=== PATIENT | male | born 1975 | race Two or more races ===

== ENCOUNTER 2024-11-22 19:15 | Inpatient (IN) | payer OTHER ==
[~2024-11-22] VITALS: Ht 172.7 cm; Wt 90.7 kg
[~2024-11-22 19:15] MED LIST: AMARYL 1 MG PO; AMOX1TAB5 PO; BASAGLAR K100 UNIT/1 SQ; Bumex PO; CARdura 2MG TABLET PO; CARdura 4MG TABLET PO; Cozaar PO; HumaLOG 100 UNIT/1 ML (3ML) SUBCUTANEO; INTESTINEX1 CA1 PO; Lantus 1000 U/10 ML SUBCUTANEO; NORVASC 10 MG TAB PO; NORVASC 5MG TAB PO; PROCRIT IV; PROTEINEX WC L887 ML PO; Tenormin 50MG TAB PO; ZYLOPRIM100 M1 PO
[2024-11-22] MEDS ORDERED: NIFEDIPINE20 MG PO (19:27)
[2024-11-22] MEDS ORDERED: CARVEDILOL ER40 MG PO (19:27)
[2024-11-22] MEDS ORDERED: ELIQUIS5 MG PO (19:27)
[2024-11-22] MEDS ORDERED: TAMBOCOR150 MG PO (19:28)
[2024-11-22] MEDS ORDERED: TRADJENTA5 MG PO (19:28)
[2024-11-22] MEDS ORDERED: HUMALOG100 UNIT/2 SQ (19:29)
[2024-11-22] MEDS ORDERED: LANTUS SOL100 UNIT/1 (19:29)
--- NOTE | 2024-11-22 19:29 | NUR ---
PACIENTE DEL DR. NADJA CHU POR CON HGB EN 6.0
--- NOTE | 2024-11-22 20:42 | NUR ---
SE EDUCA PACIENTE SOBRE EL TX MEDICO Y LEI REFIERE ENTENDER. SE CANALIZA Y SE CARLYLE EN S/L. SE HAY MUESTRAS DE LABORATORIOS Y SE ENVIAN. SE REQUISAN 2 UNIDADES PARA SER TRANSFUNDIDO INTRA DYALISIS. PACIENTE FIRMA CONSENTIMIENTO DE TRANSFUCION
[2024-11-22 21:02] LABS: MEAN CELL VOLUME 87.7 fL (80.0-100.00); MEAN CORPUSCULAR HGB CONC 34.1 g/dl (32.0-36.0); RED BLOOD COUNT 2.01 M/uL (4.00-6.00); RED CELL DISTRIBUTION WIDTH 14.4 % (11.5-14.5)
[2024-11-22 21:08] LABS: HEMATOCRIT 17.7 % (39.0-48.0); MEAN CORPUSCULAR HEMOGLOBIN 29.8 pg (27.00-32.0); PLATELET COUNT 126 K/uL (150-450)
[2024-11-22 21:14] LABS: INR 1.05; PARTIAL THROMBOPLASTIN TIME 32.5 SECONDS (22.0-34.0); PROTHROMBIN TIME 11.4 SECONDS (9.0-11.5)
[2024-11-22 21:23] LABS: ALBUMIN 2.7 gm/dL (3.4-5.0); BILIRUBIN TOTAL 1.07 mg/dL (0.3-1.2); GFR 3.87; GLOBULINA 4.5 G/DL (2.4-3.5); POTASSIUM 4.5 mEq/L (3.5-5.1); TOTAL PROTEIN 7.2 gm/dL (6.4-8.2)
[2024-11-22 21:37] LABS: CREATININE SERUM 13.8 mg/dL (0.70-1.30)
[2024-11-22] MEDS ORDERED: INSULIN LISPRO 1,000 UNIT/10 ML UNITS SUBCUTANEO PRN (22:15)
[2024-11-22] MEDS ORDERED: DEXTROSE 50 % IN WATER 0.5 G/ML DISP.SYRIN IV PRN (22:15)
[2024-11-22 23:26] VITALS: BP 155/75; O2SAT 99
[2024-11-23 02:27] VITALS: BP 152/62; O2SAT 100
[2024-11-23] MEDS ORDERED: INSULIN LISPRO 1,000 UNIT/10 ML UNITS SUBCUTANEO SCH (08:00)
[2024-11-23 08:20] VITALS: BP 124/81; O2SAT 100
[2024-11-23] MEDS ORDERED: NIFEDIPINE 30 MG TAB.SA.OSM PO SCH (09:00)
[2024-11-23] MEDS ORDERED: FF) FLECAINIDE ACETATE 50MG TAB PO SCH (09:00)
[2024-11-23] MEDS ORDERED: APIXABAN 5 MG TABLET PO SCH (09:00)
[2024-11-23] MEDS ORDERED: PANTOPRAZOLE SODIUM 40 MG/VIAL VIAL IV SCH (09:00)
[2024-11-23] MEDS ORDERED: CARVEDILOL 25 MG TABLET PO SCH (09:00)
[2024-11-23] MEDS ORDERED: CALCITRIOL 0.25 MCG CAPSULE PO SCH (09:00)
[2024-11-23 19:21] VITALS: BP 149/69; O2SAT 100
[2024-11-23] MEDS ORDERED: INSULIN GLARGINE,HUM.REC.ANLOG 1,000 UNITS/10 ML UNITS SUBCUTANEO SCH (21:00)
[2024-11-24 00:12] VITALS: BP 139/64; O2SAT 100
[2024-11-24] MEDS ORDERED: IRON FUM,PS/FOLIC/BCOMP,C NO.9 1 CAP CAPSULE PO SCH (09:00)
[2024-11-24] MEDS ORDERED: Cyanocobalamin/Mecobalamin 1 TAB.SL SL SCH (09:00)
[2024-11-24] MEDS ORDERED: EPOETIN ALFA-EPBX 10,000 UNIT/ML VIAL (Retacrit) SUBCUTANEO SCH (09:00)
[2024-11-24] MEDS ORDERED: FOLIC ACID 1 MG TABLET PO SCH (09:00)
[2024-11-24 10:00] VITALS: BP 119/54; O2SAT 100
[2024-11-24 13:52] VITALS: BP 143/65; O2SAT 100
[2024-11-24 16:00] VITALS: BP 140/65; O2SAT 95
[2024-11-24 23:22] LABS: MEAN CELL VOLUME 86.7 fL (80.0-100.00); MEAN CORPUSCULAR HGB CONC 34.3 g/dl (32.0-36.0); RED BLOOD COUNT 2.68 M/uL (4.00-6.00); RED CELL DISTRIBUTION WIDTH 14.5 % (11.5-14.5)
[2024-11-24 23:30] LABS: HEMATOCRIT 23.2 % (39.0-48.0); MEAN CORPUSCULAR HEMOGLOBIN 29.8 pg (27.00-32.0); PLATELET COUNT 109 K/uL (150-450)
[2024-11-25 00:27] VITALS: BP 187/78; O2SAT 100
[2024-11-25 08:00] VITALS: BP 123/68; O2SAT 99
[2024-11-25 16:30] VITALS: BP 108/73; BP 145/60; O2SAT 100; O2SAT 96
[2024-11-26 04:14] VITALS: BP 145/68; O2SAT 96
[2024-11-26] MEDS ORDERED: PANTOPRAZOLE SODIUM 40 MG TABLET.DR PO SCH (09:00)
[2024-11-26 09:39] VITALS: BP 133/68; O2SAT 100
[2024-11-26 16:13] VITALS: BP 104/59; O2SAT 100
[2024-11-26 23:25] LABS: HEMATOCRIT 27.7 % (39.0-48.0); HEMOGLOBIN 9.6 g/dL (13-16.00); MEAN CELL VOLUME 85.9 fL (80.0-100.00); MEAN CORPUSCULAR HEMOGLOBIN 29.9 pg (27.00-32.0); MEAN CORPUSCULAR HGB CONC 34.8 g/dl (32.0-36.0); RED BLOOD COUNT 3.22 M/uL (4.00-6.00); RED CELL DISTRIBUTION WIDTH 15.4 % (11.5-14.5)
[2024-11-26 23:26] LABS: PLATELET COUNT 96 K/uL (150-450)
[2024-11-27 00:14] VITALS: BP 180/77; O2SAT 100
[2024-11-27 08:53] VITALS: BP 144/67; O2SAT 100
[2024-11-27 15:37] LABS: HEMATOCRIT 28.1 % (39.0-48.0); HEMOGLOBIN 9.8 g/dL (13-16.00); MEAN CELL VOLUME 86.7 fL (80.0-100.00); MEAN CORPUSCULAR HEMOGLOBIN 30.3 pg (27.00-32.0); MEAN CORPUSCULAR HGB CONC 34.9 g/dl (32.0-36.0); RED BLOOD COUNT 3.25 M/uL (4.00-6.00); RED CELL DISTRIBUTION WIDTH 15.2 % (11.5-14.5)
[2024-11-27 15:54] LABS: PLATELET COUNT 101 K/uL (150-450)
[2024-11-27 16:19] VITALS: BP 132/63; O2SAT 95
[2024-11-28 01:13] VITALS: BP 161/69; O2SAT 100
[2024-11-28 08:00] VITALS: BP 121/58; O2SAT 100
== END 2024-11-28 15:42 | disposition home or self-care (01) | DRG 682 ==
LOC: ER 19:17 → SURG 21:49 → SEC-K 21:49 → SURG 11-23 01:02 → SURH 11-24 11:53 → SURG 11-24 15:18
PROVIDERS: General Practice; Internal Medicine; ADMIT Internal Medicine; ATTEND Internal Medicine
PROC: 30233N1 Transfusion of Nonautologous Red Blood Cells into Peripheral Vein, Percutaneous Approach (ICD-10-PCS; principal; 2024-11-24)
PROC: 5A1D70Z Performance of Urinary Filtration, Intermittent, Less than 6 Hours Per Day (ICD-10-PCS; 2024-11-24)
PROC: 5A1D70Z Performance of Urinary Filtration, Intermittent, Less than 6 Hours Per Day (ICD-10-PCS; 2024-11-26)
DX: I12.0 Hypertensive chronic kidney disease with stage 5 chronic kidney disease or end stage renal disease (principal); N18.6 End stage renal disease; N17.9 Acute kidney failure, unspecified; D64.9 Anemia, unspecified; E11.22 Type 2 diabetes mellitus with diabetic chronic kidney disease; Z79.4 Long term (current) use of insulin; E78.5 Hyperlipidemia, unspecified; D63.1 Anemia in chronic kidney disease; Z99.2 Dependence on renal dialysis

== ENCOUNTER 2024-12-23 14:26 | Inpatient (IN) | payer OTHER ==
[~2024-12-23] VITALS: Ht 177.8 cm; Wt 83.9 kg
[~2024-12-23 14:26] MED LIST changes: +CARVEDILOL ER40 MG PO; +ELIQUIS5 MG PO; +HUMALOG100 UNIT/2 SQ; +LANTUS SOL100 UNIT/1; +NIFEDIPINE20 MG PO; +TAMBOCOR150 MG PO; +TRADJENTA5 MG PO
[2024-12-23 15:53] LABS: MEAN CELL VOLUME 85.2 fL (80.0-100.00); MEAN CORPUSCULAR HGB CONC 32.1 g/dl (32.0-36.0); PLATELET COUNT 210 K/uL (150-450); RED BLOOD COUNT 2.62 M/uL (4.00-6.00)
[2024-12-23 15:59] LABS: MEAN CORPUSCULAR HEMOGLOBIN 27.4 pg (27.00-32.0)
[2024-12-23 16:00] LABS: HEMATOCRIT 22.3 % (39.0-48.0); HEMOGLOBIN 7.2 g/dL (13-16.00)
[2024-12-23 16:03] LABS: INR 1.25; PARTIAL THROMBOPLASTIN TIME 37.1 SECONDS (22.0-34.0); PROTHROMBIN TIME 13.4 SECONDS (9.0-11.5)
[2024-12-23 16:13] LABS: ALBUMIN 1.9 gm/dL (3.4-5.0); BILIRUBIN TOTAL 1.16 mg/dL (0.3-1.2); GFR 6.02; POTASSIUM 3.92 mEq/L (3.5-5.1); TOTAL PROTEIN 6.9 gm/dL (6.4-8.2)
[2024-12-23 16:35] LABS: CREATININE SERUM 9.42 mg/dL (0.70-1.30)
[2024-12-23] MEDS ORDERED: DEXTROSE 50 % IN WATER 0.5 G/ML DISP.SYRIN IV PRN (20:30)
[2024-12-23] MEDS ORDERED: INSULIN LISPRO 1,000 UNIT/10 ML UNITS SUBCUTANEO PRN (20:30)
[2024-12-23] MEDS ORDERED: CARVEDILOL 6.25 MG TABLET PO SCH (21:00)
[2024-12-23] MEDS ORDERED: INSULIN GLARGINE,HUM.REC.ANLOG 1,000 UNITS/10 ML UNITS SUBCUTANEO ONE (22:15)
[2024-12-23 23:57] VITALS: BP 153/58; O2SAT 100
[2024-12-24 00:31] LABS: ob NEGATIVE (NEGATIVE)
[2024-12-24 09:00] VITALS: BP 147/67; O2SAT 99
[2024-12-24] MEDS ORDERED: FF) FLECAINIDE ACETATE 50MG TAB PO SCH (09:00)
[2024-12-24] MEDS ORDERED: WATER IV SCH (09:00)
[2024-12-24] MEDS ORDERED: SPIRONOLACTONE 25 MG TABLET PO SCH (09:00)
[2024-12-24] MEDS ORDERED: DEFEROXAMINE MESYLATE IV SCH (09:00)
[2024-12-24] MEDS ORDERED: DEXTROSE 5% IV SCH (09:00)
[2024-12-24 12:00] VITALS: BP 152/68; O2SAT 100
[2024-12-24 16:38] VITALS: BP 156/66; O2SAT 98
[2024-12-24] MEDS ORDERED: INSULIN GLARGINE,HUM.REC.ANLOG 1,000 UNITS/10 ML UNITS SUBCUTANEO SCH (21:00)
[2024-12-24 22:26] VITALS: BP 135/56
[2024-12-24 23:30] LABS: HEMATOCRIT 26.3 % (39.0-48.0); MEAN CELL VOLUME 83.8 fL (80.0-100.00); MEAN CORPUSCULAR HEMOGLOBIN 28.3 pg (27.00-32.0); MEAN CORPUSCULAR HGB CONC 33.7 g/dl (32.0-36.0); PLATELET COUNT 213 K/uL (150-450); RED BLOOD COUNT 3.14 M/uL (4.00-6.00); RED CELL DISTRIBUTION WIDTH 15.8 % (11.5-14.5)
[2024-12-24 23:32] LABS: HEMOGLOBIN 8.9 g/dL (13-16.00)
[2024-12-25 03:05] VITALS: BP 152/70
[2024-12-25] MEDS ORDERED: DEXTROSE 5%-WATER 250ML IV.SOLN ONE (08:28)
[2024-12-25 08:52] VITALS: BP 122/60
[2024-12-25] MEDS ORDERED: FF) FLECAINIDE ACETATE 50MG TAB PO SCH (09:00)
[2024-12-25] MEDS ORDERED: EPOETIN ALFA-EPBX 10,000 UNIT/ML VIAL (Retacrit) SUBCUTANEO NR (14:00)
[2024-12-25] MEDS ORDERED: TAMBOCOR150 MG PO (15:11)
[2024-12-25] MEDS ORDERED: CARVEDILOL ER40 MG PO (15:11)
[2024-12-25] MEDS ORDERED: SPIRONOLACTONE25 MG PO (15:11)
[2024-12-25] MEDS ORDERED: Lantus 1000 UNITS/10 SUBCUTANEO (15:11)
[2024-12-28] MEDS ORDERED: EPOETIN ALFA-EPBX 10,000 UNIT/ML VIAL (Retacrit) SUBCUTANEO SCH (09:00)
== END 2024-12-25 15:24 | disposition home or self-care (01) | DRG 947 ==
LOC: ER 14:29 → SEC-K 21:29 → MEDI 22:05 → SEC-K 22:13 → MEDJ 12-24 16:11
PROVIDERS: Emergency Medicine; General Practice; ADMIT Internal Medicine; ATTEND Internal Medicine
PROC: 0W9G3ZZ Drainage of Peritoneal Cavity, Percutaneous Approach (ICD-10-PCS; principal; 2024-12-24)
PROC: 30233N1 Transfusion of Nonautologous Red Blood Cells into Peripheral Vein, Percutaneous Approach (ICD-10-PCS; 2024-12-24)
PROC: 5A1D70Z Performance of Urinary Filtration, Intermittent, Less than 6 Hours Per Day (ICD-10-PCS; 2024-12-24)
DX: R18.8 Other ascites (principal); N18.6 End stage renal disease; N18.9 Chronic kidney disease, unspecified; D63.1 Anemia in chronic kidney disease; Z99.2 Dependence on renal dialysis